=== PATIENT | male | born 1985 | race Caucasian/White ===

== ENCOUNTER 2024-03-21 08:13 | Day surgery (SDC) | payer SELFPAY ==
[~2024-03-21] VITALS: Ht 172.7 cm; Wt 87.9 kg
[2024-03-21] VITALS (13 sets, daily range): BP systolic 139–160; BP diastolic 90–111; PULSE 48–98; TEMP 97.8
[2024-03-21] MEDS ORDERED: 1/2 NS 1,000 ML IV SCH (08:30)
[2024-03-21] MEDS ORDERED: COZAAR 50MG50 MG/TAB PO (08:55)
[2024-03-21] MEDS ORDERED: TOPROL XL100 MG PO (08:56)
[2024-03-21] MEDS ORDERED: ALDACTONE 25MG25 M1 (08:56)
[2024-03-21 09:16] LABS: HEMATOCRIT 41.6 % (42.0-52.0); HEMOGLOBIN 14.1 g/dl (13.5-18.0); MEAN CELL VOLUME 88 fl (80.0-100.0); MEAN CORPUSCULAR HEMOGLOBIN 30 pg (27-31); MEAN CORPUSCULAR HGB CONC 34 g/dl (33.0-37.0); MEAN PLATELET VOLUME 10.5 fl (7.4-10.4); PLATELET COUNT 218 K/mm3 (130-400); RED BLOOD COUNT 4.71 M/mm3 (4.20-5.60); REDCELL DISTRIBUTION WIDTH-CV 13.2 % (11.5-14.5)
[2024-03-21 09:21] LABS: PROTHROMBIN TIME 11.2 SECONDS (9.7-12.8)
[2024-03-21 09:24] LABS: PARTIAL THROMBOPLASTIN TIME 29.3 SECONDS (26.0-37.0)
[2024-03-21 09:39] LABS: CALCIUM 9.1 mg/dL (8.4-10.2); CREATININE, serum 1.08 mg/dL (0.72-1.25); POTASSIUM 4.3 mEq/L (3.5-4.5)
--- NOTE | 2024-03-21 10:28 | NUR ---
SEE MERGE FOR PROCEDURE DOCUMENTATION
[2024-03-21] MEDS ORDERED: Heparin 1,000 UNITS/ML 10 ML Multi-Dose VIAL IV SCH (11:01)
[2024-03-21] MEDS ORDERED: Heparin 1,000 UNITS/ML 10 ML Multi-Dose VIAL IA SCH (11:02)
[2024-03-21] MEDS ORDERED: Nitroglycerin 100 MCG/ML (Cath Lab) 10 ML VIAL IA SCH (11:04)
[2024-03-21] MEDS ORDERED: Verapamil 2.5 MG/ML 2 ML VIAL IA SCH (11:04)
[2024-03-21] MEDS ORDERED: fentaNYL 50 MCG/ML 2 ML VIAL IV SCH (11:05)
[2024-03-21] MEDS ORDERED: Iohexol 350 - 100 ML VIAL INCOR ONE (11:06)
[2024-03-21] MEDS ORDERED: Midazolam 2 MG/2 ML VIAL IV SCH (11:06)
--- NOTE | 2024-03-21 11:22 | NUR ---
PATIENT ALERT AND ORIENTED, DENIES PAIN, VSS. RIGHT RADIAL SITE REMAINS CDI. PATIENT TRANSFERRED TO CART AND TRANSPORTED TO [facility]. FAMILY BROUGHT TO BEDSIDE AND PLAN OF CARE REVIEWED, QUESTIONS INVITED. VITAL SIGNS STABLE ON ARRIVAl. TRANSFER OF CARE REPORT TO KENYATTA VIERA. BED TO LOWEST POSITION, X3 BEDRAILS IN PLACE, CALL LIGHT WITHIN REACH.
[2024-03-21] MEDS ORDERED: COZAAR100 MG PO (11:52)
--- NOTE | 2024-03-21 14:55 | NUR ---
Pt ambulated with a steady gait to EU9 accompanied by their uncle. Pt was scheduled for a [facility] [place]. EKG done. IV started. Meds and HX reviewed with the pt. Consent for the procedure signed. Post procedure the pt came back to 9. Assessed the pts right radial site once back, site was clean, dry, and intact. Offered the pt something to eat and drink. Accepted a pepsi and a meal was ordered. The pt was bedrest for 1 hr post procedure. Once the 1 hour was done the pt got up to use the restroom. At the start of the 3 hr recovery air was released from the band 2-3 mls every 15 minutes. No bleeding occured during this process. Once all the air was released from the radial band the site was cleaned and a band-aid was applied. The deflated radial band and arm board were reapplied as a reminder to limit the extremity use. Discharge education and information discussed with the pt. No questions at this time. IV dc'd and the site was wrapped in coban. The pt exited the unit by wheelchair accompanied by this nurse to their uncles car.
== END 2024-03-21 14:49 | disposition home or self-care (01) ==
LOC: COL.CAR 08:13
PROVIDERS: Internal Medicine Cardiovascular Disease
DX: I42.8 Other cardiomyopathies (principal)
CPT/HCPCS: J1644; J2250; J3010; Q9967

== ENCOUNTER 2024-04-29 09:48 | Emergency (ER) | payer SELFPAY ==
[~2024-04-29] VITALS: Ht 172.7 cm; Wt 89.3 kg
[~2024-04-29 09:48] MED LIST: ALDACTONE 25MG25 M1 PO; COZAAR 50MG50 MG/TAB PO; COZAAR100 MG PO; TOPROL XL100 MG PO
[2024-04-29 09:55] VITALS: TEMP 98.3
[2024-04-29] MEDS ORDERED: Spironolactone 25 MG TAB PO ONE (10:15)
[2024-04-29] MEDS ORDERED: Losartan 50 MG TAB PO ONE (10:15)
[2024-04-29] MEDS ORDERED: cloNIDine 0.1 MG TAB PO ONE (11:30)
[2024-04-29 11:53] VITALS: BP 164/110; PULSE 88
== END 2024-04-29 12:07 | disposition home or self-care (01) ==
LOC: COL.ER 09:48
DX: I11.0 Hypertensive heart disease with heart failure (principal); I50.9 Heart failure, unspecified; F17.200 Nicotine dependence, unspecified, uncomplicated; Z79.899 Other long term (current) drug therapy